=== PATIENT | female | born 1930 | race Caucasian/White ===

== ENCOUNTER 2017-12-19 13:09 | Emergency (ER) | payer MEDICARE, OTHER ==
[2017-12-19 13:22] VITALS: TEMP 98.1
--- NOTE | 2017-12-19 14:04 | XR ---
EXAMINATION TYPE: XR hand complete RT DATE OF EXAM: 12/19/2017 COMPARISON: NONE HISTORY: Pain TECHNIQUE: Three views are submitted. FINDINGS: The osseous structures are intact. There is diffuse osteopenia and arthropathy of the of the PIP, MCP and DIP joint. Severe arthropathy of the first carpal metacarpal joint is seen in a pattern most typ ical of osteoarthritis. No erosive changes. There is deformity near the base of the fourth and fifth metacarpals suspicious for hairline nondispl aced fractures. Chronic appearing deformity of the distal radius noted with narrowing of the radiocar pal joint. IMPRESSION: 1. There are subtle deformities involving the fourth and fifth metacarpals near the base suspicious f or hairline nondisplaced fractures. Articular extension not excluded. Correlate clinically. 2. Findings are suggestive of severe osteoarthritis.
--- NOTE | 2017-12-19 14:26 | ED ---
General Adult HPI - General Chief complaint: Extremity Injury, Upper Stated complaint: fall, rt hand injury Time Seen by Provider: 12/19/17 13:26 Source: patient, RN notes reviewed Mode of arrival: ambulatory Limitations: no limitations - History of Present Illness Initial comments: Patient 87-year-old female presented to the emergency room today with chief complaint of a fall that occurred earlier today when she was outside gardening. She states she fell forward onto outstretched hand. She does admit to pain over the right pinky finger. States worse with movements. Patient denies any head injury or loss conscious. States she's not on any blood thinners. Denies any other complaints. Patient denies any recent fever, chills, shortness of breath, chest pain, back pain, abdominal pain, nausea or vomiting, headaches or visual changes, or any other complaints. - Related Data Home Medications Medication Instructions Recorded Confirmed ALPRAZolam [Xanax] 0.25 mg PO HS PRN 12/19/17 12/19/17 Citalopram Hydrobromide [CeleXA] 10 mg PO DAILY 12/19/17 12/19/17 Cyanocobalamin (Vitamin B-12) 2,500 mcg PO DAILY 12/19/17 12/19/17 [Vitamin B12] Cyclobenzaprine [Flexeril] 5 mg PO HS PRN 12/19/17 12/19/17 Glucosamine Sulfate 500 mg PO DAILY 12/19/17 12/19/17 HYDROcodone/APAP 5-325MG [[place] 1 tab PO Q6HR PRN 12/19/17 12/19/17 5-325] Losartan Potassium 100 mg PO DAILY 12/19/17 12/19/17 Melatonin 10 mg PO HS PRN 12/19/17 12/19/17 Omeprazole 40 mg PO BID 12/19/17 12/19/17 amLODIPine [Norvasc] 5 mg PO DAILY 12/19/17 12/19/17 Allergies Allergy/AdvReac Type Severity Reaction Status Date / Time morphine Allergy Unknown Verified 12/19/17 13:49 Review of Systems ROS Statement: Those systems with pertinent positive or pertinent negative responses have been documented in the HPI. ROS Other: All systems not noted in ROS Statement are negative. Past Medical History Past Medical History: GERD/Reflux, Hyperlipidemia, Hypertension Additional Past Medical History / Comment(s): heart murmur, chronic back pain History of Any Multi-Drug Resistant Organisms: None Reported Past Surgical History: Hysterectomy, Orthopedic Surgery Additional Past Surgical History / Comment(s): stomach and esophagus surgery Past Psychological History: No Psychological Hx Reported Smoking Status: Never smoker Past Alcohol Use History: Rare Past Drug Use History: None Reported General Exam - General Exam Comments Initial Comments: General: The patient is awake and alert, in no distress, and does not appear acutely ill. Eye: Pupils are equal, round and reactive to light, extra-ocular movements are intact. No nystagmus. There is normal conjunctiva bilaterally. No signs of icterus. Ears, nose, mouth and throat: There are moist mucous membranes and no oral lesions. Neck: The neck is supple, there is no tenderness or JVD. Musculoskeletal: Normal ROM. Mild swelling over the fourth and fifth metacarpals down into the fifth digit of the right hand. Strength 5/5. Sensation intact. Pulses equal bilaterally 2+. Neurological: A&O x 3. CN II-XII intact, There are no obvious motor or sensory deficits. Coordination appears grossly intact. Speech is normal. Skin: Skin is warm and dry and no rashes or lesions are noted. Psychiatric: Cooperative, appropriate mood & affect, normal judgment. Limitations: no limitations Course Vital Signs 12/19/17 13:19 Temperature 98.1 F Pulse Rate 66 Respiratory 20 Rate Blood Pressure 170/61 O2 Sat by Pulse 99 Oximetry Medical Decision Making - Medical Decision Making X-rays reviewed shows degenerative changes along with possible hairline fractures of the fourth and fifth base of metacarpals patient has been splinted in a ulnar gutter splint. Patient is advised following up with her orthopedic doctor. Disposition Clinical Impression: Hand fracture Disposition: HOME SELF-CARE Condition: Good Instructions: Hand Fracture (ED) Additional Instructions: Please leave splinted in place until follow-up appointment with orthopedic over the next 2-5 days. Please continue to ice elevate the affected area. Please return to emergency room for any other concerns. Is patient prescribed a controlled substance at d/c from ED?: No Referrals: Nonstaff,Physician [Primary Care Provider] - 1-2 days Time of Disposition: 14:26
[2017-12-19 15:00] VITALS: BP 98/79; PULSE 70; RESP 18
== END 2017-12-19 15:00 | disposition home or self-care (01) ==
LOC: EC 13:09
DX: S62.91XA Unspecified fracture of right hand, initial encounter for closed fracture (principal); W01.0XXA Fall on same level from slipping, tripping and stumbling without subsequent striking against object, initial encounter; Y92.89 Other specified places as the place of occurrence of the external cause; K21.9 Gastro-esophageal reflux disease without esophagitis; I10 Essential (primary) hypertension; E78.5 Hyperlipidemia, unspecified; Z79.899 Other long term (current) drug therapy; Z88.5 Allergy status to narcotic agent
CPT/HCPCS: 29125; 99283